=== PATIENT | female | born 1965 | race Caucasian/White ===

== ENCOUNTER 2017-09-27 19:46 | Inpatient (IN) | payer MEDICAID ==
[~2017-09-27] VITALS: Ht 165.1 cm; Wt 129.7 kg
[2017-09-27 20:54] LABS: BASOPHILS # (AUTO) 0.01 x10^3/uL (0-0.1); BASOPHILS % (AUTO) 0 % (0-1); EOSINOPHILS # (AUTO) 0.08 x10^3/uL (0-0.4); EOSINOPHILS % (AUTO) 1 % (1-7); LYMPHOCYTES # (AUTO) 0.66 x10^3/uL (1-3.4); LYMPHOCYTES % (AUTO) 6 % (22-44); MD NO; MEAN CORPUSCULAR HEMOGLOBIN 30.4 pg (27.0-34.8); MEAN CORPUSCULAR VOLUME 89.5 fL (80-100); MEAN PLATELET VOLUME 8.2 fL (7.4-10.4); MONOCYTES # (AUTO) 0.56 x10^3/uL (0.2-0.8); MONOCYTES % (AUTO) 5 % (2-9); NEUTROPHILS % (AUTO) 88 % (42-75); PLATELET COUNT 242 x10^3/uL (130-400); RED BLOOD COUNT 4.74 x10^6/uL (3.82-5.3); RED CELL DISTRIBUTION WIDTH 15.1 % (9.6-15.2)
[2017-09-27 21:07] LABS: ALANINE AMINOTRANSFERASE 36 U/L (12-78); ANION GAP 11 mmol/L (5-15); CALCIUM 8.4 mg/dL (8.5-10.1); CHLORIDE 104 mmol/L (98-107); CREATININE 1.36 mg/dL (0.55-1.02)
[2017-09-27 21:11] LABS: ALKALINE PHOSPHATASE 71 U/L (45-117); TOTAL PROTEIN 7.2 g/dL (6.4-8.2); TROPONIN I 0.036 ng/mL (0.000-0.045)
[2017-09-27] MEDS ORDERED: FUROSEMIDE 20 MG/2 ML IV ONE (21:30)
[2017-09-27] MEDS ORDERED: PLEASE ENTER ALLERGIES MC SCH (21:30)
[2017-09-27] MEDS ORDERED: AZITHROMYCIN 500 MG in SODIUM CHLORIDE 0.9% 250 ML IV ONE (21:30)
[2017-09-27] MEDS ORDERED: FUROSEMIDE 20 MG/2 ML ONE (21:36)
[2017-09-27] MEDS ORDERED: OMNIPAQUE 350 MG/ML, 100ML BOTTLE ONE (21:36)
[2017-09-27 21:59] LABS: RAPID INFLUENZA A POSITIVE (Negative); RAPID INFLUENZA B Negative (Negative)
[2017-09-27] MEDS ORDERED: VANCOMYCIN 2,300 MG in SODIUM CHLORIDE 0.9% 500 ML IV ONE (22:30)
[2017-09-27] MEDS ORDERED: VANCOMYCIN PER PHARMACY MC PRN (22:30)
[2017-09-27] MEDS ORDERED: SPIR100T2 PO (22:39)
[2017-09-27] MEDS ORDERED: CARV6.252 PO (22:40)
[2017-09-27] MEDS ORDERED: HYDR-882 PO (22:41)
[2017-09-27] MEDS ORDERED: CLOP75TA52 PO (22:54)
[2017-09-27 23:41] VITALS: BP 119/75
[2017-09-28] MEDS ORDERED: ACETAMINOPHEN 325 MG TABLET PO PRN (00:30)
[2017-09-28] MEDS ORDERED: GUAIFENESIN/DM 200-20MG, 10ML UDC PO PRN (00:30)
[2017-09-28] MEDS ORDERED: hydrALAzine 20 MG/ML, 1ML IVPush PRN (00:30)
[2017-09-28] MEDS ORDERED: DOCUSATE 100 MG CAPSULE PO PRN (00:30)
[2017-09-28] MEDS ORDERED: VANCOMYCIN PER PHARMACY MC PRN (00:30)
[2017-09-28] MEDS ORDERED: ALBUTEROL/IPRATROPIUM 2.5MG/0.5MG, 3 ML ONE (00:54)
[2017-09-28] MEDS ORDERED: ROPI2TAB4 PO (01:30)
[2017-09-28] MEDS ORDERED: ALBUTEROL/IPRATROPIUM 2.5MG/0.5MG, 3 ML NPPB PRN (01:30)
[2017-09-28] MEDS ORDERED: METF-649 PO (01:30)
[2017-09-28] MEDS ORDERED: GABA800T2 PO (01:30)
[2017-09-28] MEDS ORDERED: NITR0.3T5 SL (01:30)
[2017-09-28] MEDS ORDERED: FOLI-17 PO (01:30)
[2017-09-28] MEDS ORDERED: ZAFI20TA11 PO (01:30)
[2017-09-28] MEDS ORDERED: LOSA100T6 PO (01:30)
[2017-09-28] MEDS ORDERED: ASPI-515 PO (01:30)
[2017-09-28] MEDS ORDERED: SUVO15TA PO (01:50)
[2017-09-28] MEDS ORDERED: PHARMACOKINETIC CONSULTATION MC ONE (02:00)
[2017-09-28] MEDS ORDERED: PHARMACOKINETIC MONITORING MC PRN (02:00)
[2017-09-28 02:34] VITALS: BP 100/68
[2017-09-28] MEDS: ALBUTEROL/IPRATROPIUM 2.5MG/0.5MG, 3 ML NPPB SCH ×5 (05:20→20:10)
[2017-09-28] MEDS: FUROSEMIDE 20 MG/2 ML IV SCH ×2 (07:30→16:06)
[2017-09-28 07:43] VITALS: BP 95/54
[2017-09-28] MEDS: CARVEDILOL 6.25 MG TABLET PO SCH ×2 (07:49→22:09)
[2017-09-28] MEDS: SPIRONOLACTONE 100 MG TABLET PO SCH (07:49)
[2017-09-28 07:53] LABS: CLOSTRIDIUM DIFFICILE ANTIGEN NEGATIVE; CLOSTRIDIUM DIFFICILE TOXIN NEGATIVE (Negative)
[2017-09-28] MEDS: OSELTAMIVIR 75 MG CAPSULE PO SCH ×2 (09:09→22:11)
[2017-09-28] MEDS: FLUTICASONE/VILANTEROL 200-25MCG/INH INH SCH (10:44)
[2017-09-28 13:38] VITALS: BP 95/58
[2017-09-28] MEDS: CEFTRIAXONE PMX 1GM/50ML 50 ML IV SCH (13:46)
[2017-09-28] MEDS: SODIUM CHLORIDE NASAL SPRAY 45ML BOTTLE NAS PRN ×3 (14:35→23:47)
[2017-09-28] MEDS ORDERED: AZITHROMYCIN 500 MG in SODIUM CHLORIDE 0.9% 250 ML IV SCH (21:30)
[2017-09-28 21:35] VITALS: BP 90/64
[2017-09-28] MEDS: GUAIFENESIN ER 600 MG TABLET PO SCH (22:11)
[2017-09-28] MEDS: DOXYCYCLINE 50 MG/5 ML ORAL SUSP PO SCH (22:11)
[2017-09-29 00:49] VITALS: BP 92/60
[2017-09-29] MEDS ORDERED: VANCOMYCIN 2,200 MG in SODIUM CHLORIDE 0.9% 500 ML IV SCH (01:00)
[2017-09-29 06:03] LABS: BASOPHILS # (AUTO) 0.05 x10^3/uL (0-0.1); BASOPHILS % (AUTO) 1 % (0-1); EOSINOPHILS # (AUTO) 0.39 x10^3/uL (0-0.4); EOSINOPHILS % (AUTO) 7 % (1-7); LYMPHOCYTES # (AUTO) 0.92 x10^3/uL (1-3.4); LYMPHOCYTES % (AUTO) 16 % (22-44); MD NO; MEAN CORPUSCULAR HEMOGLOBIN 29.9 pg (27.0-34.8); MEAN CORPUSCULAR HGB CONC 32.9 g/dL (32.4-35.8); MEAN CORPUSCULAR VOLUME 90.7 fL (80-100); MEAN PLATELET VOLUME 9.1 fL (7.4-10.4); MONOCYTES # (AUTO) 0.55 x10^3/uL (0.2-0.8); MONOCYTES % (AUTO) 10 % (2-9); NEUTROPHILS # (AUTO) 3.72 x10^3/uL (1.8-6.8); NEUTROPHILS % (AUTO) 66 % (42-75); PLATELET COUNT 217 x10^3/uL (130-400); RED BLOOD COUNT 4.73 x10^6/uL (3.82-5.3); RED CELL DISTRIBUTION WIDTH 15.4 % (9.6-15.2)
[2017-09-29 06:12] LABS: CHLORIDE 104 mmol/L (98-107)
[2017-09-29 06:23] LABS: ALANINE AMINOTRANSFERASE 64 U/L (12-78); ALBUMIN 2.9 g/dL (3.4-5.0); ALKALINE PHOSPHATASE 73 U/L (45-117); ANION GAP 11 mmol/L (5-15); BILIRUBIN,TOTAL 0.9 mg/dL (0.2-1.0); CALCIUM 8.7 mg/dL (8.5-10.1); CREATININE 1.19 mg/dL (0.55-1.02); TOTAL PROTEIN 6.7 g/dL (6.4-8.2)
[2017-09-29] MEDS ORDERED: POTASSIUM CHLORIDE 20 MEQ TAB.ER.PRT PO ONE (07:00)
[2017-09-29 07:25] VITALS: BP 104/66
[2017-09-29] MEDS: CARVEDILOL 6.25 MG TABLET PO SCH ×2 (08:11→21:50)
[2017-09-29] MEDS: FLUTICASONE/VILANTEROL 200-25MCG/INH INH SCH (08:11)
[2017-09-29] MEDS: OSELTAMIVIR 75 MG CAPSULE PO SCH ×2 (08:11→21:22)
[2017-09-29] MEDS: FUROSEMIDE 20 MG/2 ML IV SCH ×2 (08:12→16:56)
[2017-09-29] MEDS: SPIRONOLACTONE 100 MG TABLET PO SCH ×2 (08:12→08:20)
[2017-09-29] MEDS: DOXYCYCLINE 50 MG/5 ML ORAL SUSP PO SCH ×2 (08:12→21:22)
[2017-09-29] MEDS: GUAIFENESIN ER 600 MG TABLET PO SCH ×2 (08:12→21:22)
[2017-09-29 08:17] VITALS: BP 112/72
[2017-09-29] MEDS: ALBUTEROL/IPRATROPIUM 2.5MG/0.5MG, 3 ML NPPB SCH ×4 (09:40→21:00)
[2017-09-29] MEDS: CEFTRIAXONE PMX 1GM/50ML 50 ML IV SCH (14:00)
[2017-09-29 15:31] VITALS: BP 98/67
[2017-09-29 21:40] VITALS: BP 129/78
[2017-09-29] MEDS ORDERED: GABAPENTIN 400 MG CAPSULE PO SCH (22:00)
[2017-09-29] MEDS ORDERED: ROPINIROLE 1MG TABLET PO SCH (22:00)
[2017-09-29] MEDS: CARVEDILOL 25 MG TABLET PO SCH (22:24)
[2017-09-29] MEDS ORDERED: CLOPIDOGREL 75 MG TABLET PO SCH (22:30)
[2017-09-29] MEDS ORDERED: ONDANSETRON 2MG/ML, 2ML IVPush PRN (23:40)
[2017-09-30 02:21] VITALS: BP 107/63
[2017-09-30 05:36] LABS: BASOPHILS # (AUTO) 0.02 x10^3/uL (0-0.1); BASOPHILS % (AUTO) 0 % (0-1); EOSINOPHILS % (AUTO) 4 % (1-7); LYMPHOCYTES # (AUTO) 1.25 x10^3/uL (1-3.4); LYMPHOCYTES % (AUTO) 24 % (22-44); MD NO; MEAN CORPUSCULAR HEMOGLOBIN 29.8 pg (27.0-34.8); MEAN CORPUSCULAR HGB CONC 33.2 g/dL (32.4-35.8); MEAN CORPUSCULAR VOLUME 89.9 fL (80-100); MEAN PLATELET VOLUME 8.9 fL (7.4-10.4); MONOCYTES % (AUTO) 14 % (2-9); NEUTROPHILS % (AUTO) 58 % (42-75); PLATELET COUNT 228 x10^3/uL (130-400); RED BLOOD COUNT 4.83 x10^6/uL (3.82-5.3); RED CELL DISTRIBUTION WIDTH 15.4 % (9.6-15.2)
[2017-09-30 05:47] LABS: CHLORIDE 105 mmol/L (98-107)
[2017-09-30 06:02] LABS: ANION GAP 11 mmol/L (5-15); CALCIUM 8.8 mg/dL (8.5-10.1)
[2017-09-30 06:05] LABS: CREATININE 1.25 mg/dL (0.55-1.02)
[2017-09-30 07:36] VITALS: BP 111/65
[2017-09-30] MEDS: SPIRONOLACTONE 100 MG TABLET PO SCH (08:58)
[2017-09-30] MEDS: GUAIFENESIN ER 600 MG TABLET PO SCH (08:59)
[2017-09-30] MEDS: OSELTAMIVIR 75 MG CAPSULE PO SCH (08:59)
[2017-09-30] MEDS: CARVEDILOL 25 MG TABLET PO SCH (08:59)
[2017-09-30] MEDS ORDERED: CLOPIDOGREL 75 MG TABLET PO SCH ×2 (09:00→21:00)
[2017-09-30] MEDS: metFORMIN 500 MG TABLET PO SCH ×2 (09:00→17:43)
[2017-09-30] MEDS ORDERED: LOSARTAN 50MG TABLET PO SCH (09:00)
[2017-09-30] MEDS ORDERED: ZAFIRLUKAST 20 MG TABLET PO SCH (09:00)
[2017-09-30] MEDS ORDERED: FOLIC ACID 1 MG TABLET PO SCH (09:00)
[2017-09-30] MEDS: FUROSEMIDE 20 MG/2 ML IV SCH ×3 (09:00→17:43)
[2017-09-30] MEDS ORDERED: ASPIRIN 81 MG TABLET CHEW PO SCH (09:00)
[2017-09-30] MEDS: FLUTICASONE/VILANTEROL 200-25MCG/INH INH SCH (09:01)
[2017-09-30] MEDS: DOXYCYCLINE 50 MG/5 ML ORAL SUSP PO SCH (09:02)
[2017-09-30] MEDS ORDERED: OSEL75CA PO (12:16)
[2017-09-30] MEDS ORDERED: GUAI600T31 PO (12:16)
[2017-09-30] MEDS ORDERED: CEFD300C37 PO (12:16)
[2017-09-30] MEDS ORDERED: DOXY50SY PO (12:16)
[2017-09-30] MEDS ORDERED: ALBU18HF INH (12:16)
[2017-09-30] MEDS: CEFTRIAXONE PMX 1GM/50ML 50 ML IV SCH (13:45)
[2017-09-30 16:35] VITALS: BP 114/77
== END 2017-09-30 18:17 | disposition home or self-care (01) | DRG 871 ==
LOC: ED 22:02 → EDIP 22:07 → ED 23:00 → 5SO 23:25 → 4WST 09-29 21:37
PROVIDERS: ADMIT Internal Medicine; ATTEND Internal Medicine
DX: A41.9 Sepsis, unspecified organism (principal); J10.08 Influenza due to other identified influenza virus with other specified pneumonia; N17.0 Acute kidney failure with tubular necrosis; I50.33 Acute on chronic diastolic (congestive) heart failure; I11.0 Hypertensive heart disease with heart failure; E11.40 Type 2 diabetes mellitus with diabetic neuropathy, unspecified; E44.1 Mild protein-calorie malnutrition; J44.0 Chronic obstructive pulmonary disease with (acute) lower respiratory infection; E66.01 Morbid (severe) obesity due to excess calories; J10.1 Influenza due to other identified influenza virus with other respiratory manifestations
CPT/HCPCS: 36415; 71045; 71260; 80048; 80053; 82962; 83605; 83690; 83735; 83880; 84145; 84484; 85025; 87040; 87070; 87077; 87186; 87205; 87324; 87400; 93005; 94640; 96374; J0456; J0696; J2405; J3370; J7620; Q9967; J1940; J7040; J7050